=== PATIENT | male | born 1995 | race Caucasian/White ===

== ENCOUNTER 2017-10-31 22:10 | Emergency (ER) | payer MEDICAID ==
[~2017-10-31] VITALS: Ht 180.3 cm; Wt 73.3 kg
[~2017-10-31 22:10] MED LIST: ATI1T PO; HYDR-3965 PO; NO HOME MEDS; ONDA4TAB6 PO; ONDA8TAB6 PO; PRED10TA PO
[2017-10-31 22:17] VITALS: BP 126/86
[2017-10-31] MEDS ORDERED: IBUP-1984 PO (22:44)
== END 2017-10-31 22:50 | disposition home or self-care (01) ==
LOC: ER 22:11
DX: S63.502A Unspecified sprain of left wrist, initial encounter (principal); F17.200 Nicotine dependence, unspecified, uncomplicated; F12.10 Cannabis abuse, uncomplicated; V00.131A Fall from skateboard, initial encounter; Y93.89 Activity, other specified; Y92.89 Other specified places as the place of occurrence of the external cause; Y99.8 Other external cause status
CPT/HCPCS: 29125; 73110; 99284; 99406

== ENCOUNTER 2018-01-06 15:55 | Emergency (ER) | payer MEDICAID ==
[~2018-01-06] VITALS: Ht 180.3 cm; Wt 75.0 kg
[2018-01-06 16:06] VITALS: BP 137/81
== END 2018-01-06 17:28 | disposition home or self-care (01) ==
LOC: ER 15:55
DX: S20.212A Contusion of left front wall of thorax, initial encounter (principal); F17.200 Nicotine dependence, unspecified, uncomplicated; F12.10 Cannabis abuse, uncomplicated; Z90.49 Acquired absence of other specified parts of digestive tract; Z98.890 Other specified postprocedural states; Z56.0 Unemployment, unspecified; Z79.899 Other long term (current) drug therapy; W19.XXXA Unspecified fall, initial encounter; Y93.89 Activity, other specified; Y92.89 Other specified places as the place of occurrence of the external cause; Y99.9 Unspecified external cause status
CPT/HCPCS: 71045; 99284

== ENCOUNTER 2018-08-06 06:15 | Emergency (ER) | payer MEDICAID ==
[~2018-08-06] VITALS: Ht 177.8 cm; Wt 72.7 kg
[2018-08-06] MEDS ORDERED: famotidine 20mg tablet PO ONE (07:00)
[2018-08-06] MEDS ORDERED: predniSONE 20 mg tablet PO ONE (07:00)
[2018-08-06] MEDS ORDERED: diphenhydrAMINE 50 mg/ml inj IM ONE (07:00)
[2018-08-06 09:03] VITALS: BP 105/47
[2018-08-06] MEDS ORDERED: PRED20TA PO (09:10)
[2018-08-06] MEDS ORDERED: DIPH25CA83 PO (09:10)
[2018-08-06] MEDS ORDERED: FAMO40TA73 PO (09:10)
== END 2018-08-06 09:20 | disposition home or self-care (01) ==
LOC: ER 06:15
DX: T78.3XXA Angioneurotic edema, initial encounter (principal); F12.90 Cannabis use, unspecified, uncomplicated; F14.90 Cocaine use, unspecified, uncomplicated; F17.200 Nicotine dependence, unspecified, uncomplicated; Z79.899 Other long term (current) drug therapy; Z90.49 Acquired absence of other specified parts of digestive tract; Z56.0 Unemployment, unspecified
CPT/HCPCS: 96372; 99284; J1200; J7512

== ENCOUNTER 2024-11-25 15:02 | Emergency (ER) | payer MEDICAID ==
[~2024-11-25] VITALS: Ht 180.3 cm; Wt 79.6 kg
[~2024-11-25 15:02] MED LIST changes: +DIPH25CA83 PO; +FAMO40TA73 PO
[2024-11-25 15:11] VITALS: BP 133/75; PULSE 73; RESP 16; TEMP 98; O2SAT 98
[2024-11-25] MEDS ORDERED: AMOX-580 PO (16:59)
== END 2024-11-25 17:08 | disposition home or self-care (01) ==
LOC: ER 15:02
DX: K04.7 Periapical abscess without sinus (principal); K02.9 Dental caries, unspecified; F12.90 Cannabis use, unspecified, uncomplicated; F14.90 Cocaine use, unspecified, uncomplicated; F10.10 Alcohol abuse, uncomplicated; Z90.49 Acquired absence of other specified parts of digestive tract; Z79.899 Other long term (current) drug therapy; Z98.890 Other specified postprocedural states; Z56.0 Unemployment, unspecified; Y90.9 Presence of alcohol in blood, level not specified
CPT/HCPCS: 99283

== ENCOUNTER 2025-04-10 09:20 | Outpatient (CLI) | payer MEDICAID ==
--- NOTE | 2025-04-11 05:21 | RADIOLOGY REPORT ---
Exam: MR MRI PELVIS History: HYDROCELE BILATERAL TESTICLES. Chronic pain. Comparison: None Technique: Multisequence multiplanar MRI images of the pelvis were performed. Findings: Bladder: Unremarkable. Visualized bowel: Visualized portion of the bowel is grossly unremarkable without evidence for obstru ction. Pelvic organs: Trace bilateral hydrocele. Otherwise, unremarkable. Lymphadenopathy: No evidence for pelvic lymphadenopathy. Vasculature: There is normal enhancement of the pelvic vasculature. Ascites: Absent. Musculoskeletal: The bone marrow signal is preserved. Small bilateral fat containing inguinal hernias, [id number]. IMPRESSION: Small bilateral fat containing inguinal hernias, [id number]. Trace bilateral hydrocele. Otherwise, essentially unremarkable exam. Recommend correlation with nonemergent ultrasound of the scrotum / testicle.
== END 2025-04-10 23:59 | disposition home or self-care (01) ==
LOC: MRI02 09:20
PROVIDERS: ATTEND Student in an Organized Health Care Education/Training Program
DX: K40.90 Unilateral inguinal hernia, without obstruction or gangrene, not specified as recurrent (principal); N43.3 Hydrocele, unspecified
CPT/HCPCS: 72195